=== PATIENT | female | born 1980 | race Caucasian/White ===

== ENCOUNTER 2024-01-13 11:38 | Outpatient (OUT) | payer BC, SELFPAY ==
--- NOTE | 2024-01-13 | XR_ITS ---
The [address] [address] Patient Name: ELIE HIDALGO MRN: [id number] date: 1980 Sex: F Assigned Patient Location: Current Patient Location: Accession/Order Number: [id number] Exam Date: 01/13/2024 11:38 Report Date: 01/13/2024 15:46 At the request of: ROZINA MOYER Procedure: XR foot RT min 3V PROCEDURE: XR foot RT min 3V DATE: 01/13/2024 10:38 AM CDT COMPARISONS: None CLINICAL INDICATION: RIGHT FOOT PAIN FINDINGS: There is no evidence of fractures or other acute osseous abnormalities. There is a [id number] sized spur off the posterior inferior os calcis. There is spurring off the posterior os calcis at the attachment of the Achilles. There is slight hallux valgus deformity. There is slight osseous protuberance of the distal and medial aspect of the first metatarsal overlying soft tissue. This suggests developing bunion. XR/XR foot RT min 3V IMPRESSION: Right foot radiographs show no evidence of acute abnormalities. Electronically authenticated by: TAINA DIAZ Date: 01/13/2024 15:46
== END 2024-01-13 11:39 | disposition home or self-care (01) ==
PROVIDERS: Visit Provider Podiatrist Foot & Ankle Surgery
DX: M79.671 Pain in right foot (principal)
CPT/HCPCS: 73630